=== PATIENT | male | born 1965 | race Hispanic/Latino ===

== ENCOUNTER 2018-10-15 00:19 | Emergency (ER) | payer SELFPAY ==
[2018-10-15 00:37] VITALS: BMI 28.3
[2018-10-15 00:40] VITALS: RESP 18
--- NOTE | 2018-10-15 01:14 | C.PDOC ---
History Of Present Illness Patient presents to the ER in acute urinary retention. Patient last voided approximately 8 hours ago. Patient has prior Hx of retention. Denies fever, chills, nausea, or vomiting. Time Seen by Provider: 10/15/18 01:13 Chief Complaint (Nursing): Male Genitourinary History Per: Patient History/Exam Limitations: no limitations Onset/Duration Of Symptoms: Hrs Current Symptoms Are (Timing): Still Present Severity: Moderate Pain Scale Rating Of: 4 Quality Of Discomfort: Pressure Associated Symptoms: denies: Fever, Chills, Nausea, Vomiting Recent travel outside of the [place]: No Past Medical History Reviewed: Historical Data, Nursing Documentation, Vital Signs Vital Signs: Last Vital Signs Temp 97.9 F 10/15/18 00:37 Pulse 99 H 10/15/18 00:37 Resp 18 10/15/18 00:37 BP 156/85 H 10/15/18 00:37 Pulse Ox 100 10/15/18 00:37 Primary Care Provider: Non [facility] Provider, - Medical History PMH: Denies: Chronic Kidney Disease Family History: States: No Known Family Hx - Social History Hx Alcohol Use: Yes Hx Substance Use: No - Immunization History Hx Tetanus Toxoid Vaccination: No Hx Influenza Vaccination: No Hx Pneumococcal Vaccination: No Review Of Systems Constitutional: Negative for: Fever, Chills Gastrointestinal: Negative for: Nausea, Vomiting Genitourinary: Positive for: Other (Retention) Neurological: Negative for: Weakness, Numbness Physical Exam - Physical Exam Appears: Non-toxic Skin: Warm, Dry Head: Normacephalic Gastrointestinal/Abdominal: Soft, No Tenderness, Distention (Suprapubic) Neurological/Psych: Oriented x3 ED Course And Treatment O2 Sat by Pulse Oximetry: 100 (Room air) Pulse Ox Interpretation: Normal Progress Note: Camacho catheter placed with 900cc of urine output, patient reports feeling better. Reevaluation Time: 02:00 Disposition Counseled Patient/Family Regarding: Studies Performed, Diagnosis, Need For Followup - Disposition Referrals: Law Oconnor MD [Staff Provider] - Disposition: HOME/ ROUTINE Disposition Time: 01:13 Condition: FAIR Additional Instructions: Please follow up with your urologist Instructions: How to Care for Your Camacho Catheter, Male, Urinary Retention (DC) Forms: [employer] (Lithuanian) - Clinical Impression Clinical Impression: Urinary retention - Scribe Statement The provider has reviewed the documentation as recorded by the Scribe Jagjit Doll All medical record entries made by the Scribe were at my direction and personally dictated by me. I have reviewed the chart and agree that the record accurately reflects my personal performance of the history, physical exam, medical decision making, and the department course for this patient. I have also personally directed, reviewed, and agree with the discharge instructions and disposition.
[2018-10-15 02:00] VITALS: BP 117/64; PULSE 93; TEMP 97.7
[2018-10-15 05:34] VITALS: O2SAT 100
== END 2018-10-15 02:02 | disposition home or self-care (01) ==
LOC: C.ER 00:19
DX: R33.9 Retention of urine, unspecified (principal)